=== PATIENT | female | born 1980 | race Caucasian/White ===

== ENCOUNTER 2016-04-21 19:36 | Emergency (ER) | payer BC ==
[2016-04-21] MEDS ORDERED: NORMAL SALINE 10 ML SYRINGE FLUSH IVP PRN (19:52)
[2016-04-21] MEDS ORDERED: ASPIRIN 81 MG (BABY) CHEWABLE TABLET PO ONE (19:52)
[2016-04-21] MEDS ORDERED: Sodium Chloride 0.9% 1,000 ML PRIMARY IV ONE (19:52)
[2016-04-21] MEDS ORDERED: NITROGLYCERIN 0.4 MG SL TAB (BOTTLE OF 3) SL PRN (19:52)
--- NOTE | 2016-04-21 19:55 | EKG ---
[address] [address] Measurements Intervals [place] Rate: 76 P: 41 [place]: 144 QRS: -23 QRSD: 93 T: 29 QT: 380 QTc: 410 Interpretive Statements SINUS RHYTHM BORDERLINE LEFT AXIS DEVIATION [QRS AXIS < -20] INCOMPLETE RIGHT BUNDLE BRANCH BLOCK [90+ ms QRS DURATION, TERMINAL R IN V1/V2, 40+ ms S IN I/aVL/V4/V5/V6] NONSPECIFIC T-WAVE ABNORMALITY No previous ECG available for comparison Electronically Signed On 04-22-16 08:30:46 MST by Valentin Lux MD [email or web address]
[2016-04-21 20:02] LABS: BASOPHILS # (AUTO) 0.01 10*3/UL; BASOPHILS % (AUTO) 0.2 % (0-1); EOSINOPHILS % (AUTO) 2.8 % (0-8); HEMATOCRIT 39.2 % (37.0-47.0); HEMOGLOBIN 13.1 g/dL (12.0-16.0); IMM GRAN % (AUTO) 0.3 % (0-5); IMM GRAN# (AUTO) 0.02 10*3/UL; LYMPHOCYTES # (AUTO) 1.79 10*3/uL; LYMPHOCYTES % (AUTO) 28.2 % (10-50); MEAN CORPUSCULAR HEMOGLOBIN 28.9 PG (27-31); MEAN CORPUSCULAR HGB CONC 33.4 g/dL (33-37); MEAN PLATELET VOLUME 11.1 FL (7.4-12.2); MONOCYTES # (AUTO) 0.42 10*3/UL (0.3-0.8); MONOCYTES % (AUTO) 6.6 % (5-15); NEUTROPHILS # (AUTO) 3.93 10*3/UL; NEUTROPHILS % (AUTO) 61.9 % (50-80); RDW COEFFICIENT OF VARIATION 13.8 % (11.5-14.5); RED BLOOD COUNT 4.53 10^6/uL (4.20-5.40); WHITE BLOOD COUNT 6.35 10^3/uL (4.8-10.8)
[2016-04-21 20:03] LABS: PLATELET MORPHOLOGY COMMENT NORMAL MORPHOLOGY (NORM)
[2016-04-21 20:13] LABS: ASPARTATE AMINO TRANSFERASE 18 IU/L (8-39); BILIRUBIN,TOTAL 0.5 mg/dL (0.3-1.2); BLOOD UREA NITROGEN 17 mg/dL (7-22); CALCIUM 8.9 mg/dL (8.7-10.7); CHLORIDE 105 meq/L (98-112); EST GLOMERULAR FILTRATION > 60 (>60 ml/min/1.73m(2)); GLUCOSE 77 mg/dL (78-110); POTASSIUM 3.9 meq/L (3.8-5.2); SODIUM 142 meq/L (135-145); TOTAL PROTEIN 6.8 g/dL (6.1-8.0)
[2016-04-21 20:25] LABS: TROPONIN I < 0.012 ng/mL (< 0.040)
--- NOTE | 2016-04-21 20:35 | DI ---
XR CXR 1VW,04/21/2016 7:52 PM: Clinical History: Chest pain Previous Exam: December 18, 2013 Findings: A single frontal radiograph of the chest is obtained, and demonstrate clear lungs. The cardiomediasti num and bony thorax are unremarkable. Overlying EKG leads are seen. Impression: Normal chest.
[2016-04-21] MEDS ORDERED: KETOROLAC 30 MG/1 ML VIAL IVP ONE (20:51)
--- NOTE | 2016-04-21 22:37 | PDOC ---
General Adult HPI - General Chief Complaint: Chest Pain Stated Complaint: jaw pain; pain right small finger Date Seen by Provider: 04/21/16 Time Seen by Provider: 19:40 Source: POSITIVE: Patient Exam Limitations: POSITIVE: No limitations Nurse's Notes Reviewed & Considered: Yes - History of Present Illness Initial Comment: The patient is a 35 year old female who presents to the emergency room ambulatory. She states that it since around 6 AM this morning she has had bilateral jaw pain, exacerbated by opening her mouth wide. She has been taking some discomfort for this. She also complains of pain to the right small finger which she describes as "throbbing". Patient states that she experienced some discomfort to her neck, right side, when she was standing on her head. She has since had a chiropractic manipulation which seemed to relieve her neck discomfort. She has a history of carpal tunnel syndrome. She also has a history of a prolactinoma for which she takes Parlodel, 10 mg daily. History of hypothyroidism. She is a realtor. Have you received a tetanus shot in the past 10 years?: Yes Body Location Affected: REPORTS: Upper Extremity (R) (Right small finger), Other (Bilateral jaw) Timing: REPORTS: Abrupt Duration: <24 hours (Approximately 13-15 hours) Severity: Moderate Quality: REPORTS: Aching, "Pain" Context: REPORTS: None Modifying Factors: improves with: Nothing Similar Symptoms Previously: No Recent Care Received: REPORTS: Recently Seen, Treated by MD (Seen by chiropractor recently as above) Any Prior Injuries Related to Current Complaint?: No - Patient Home Medications Home Medications: Home Medications Levothyroxine Sodium 100 mcg ORAL QD tab 10/27/10 Amphet Asp/Amphet/D-Amphet [Adderall Xr 25 Mg Capsule] 25 mg ORAL QD capsule Bromocriptine Mesylate [Parlodel] 15 mg ORAL HS capsule 03/22/11 - Patient Allergies Allergies/Adverse Reactions: Allergies Allergy/AdvReac Type Severity Reaction Status Date / Time No Known Drug Allergies Allergy NOT Verified 04/21/16 20:09 APPLICABLE Past Medical History - heen HEENT History: Denies History Cardiovascular History: Denies History Respiratory History: Denies History Gastrointestinal History: Denies History Genitourinary History: Denies History Endocrine History: Hypothyroidism, Other (please comment) Additional Endocrine History: HASHIMOTOS Musculoskeletal History: Denies History Prosthesis or Implant: (BREAST) Neurological History: Denies History Blood Disorders: Denies History Psychiatric History: Denies History Cancer History: Other (please comment) History of MDRO: No Alcohol Use: Occasionally Substance Use Type: None Previous Surgical History: Yes Type / Date of Surgery: HYSTERECTOMY, R CARPAL TUNNEL, BREAST AUG. Anesthesia Reactions: No Malignant Hyperthermia: No Significant Family History: No pertinent family hx Past Medical History Reviewed: Reviewed - No Changes ROS - Limitations ROS Limitations: No Limitations Constitution: REPORTS: Denies Symptoms Cardiovascular: REPORTS: Denies Cardiac Symptoms Respiratory: REPORTS: Denies Resp Symptoms Neurological: REPORTS: Denies Neuro Symptoms Gastrointestinal: REPORTS: Denies GI Symptoms Endocrine: REPORTS: Denies Symptoms Musculoskeletal: REPORTS: Other (Discomfort right small finger) Genitourinary: REPORTS: Denies Symptoms Eyes: REPORTS: Denies Symptoms ENT: REPORTS: Other (Pain, mainly over the temporal mandibular joint areas bilaterally on direct palpation and with opening her mouth fully) Skin: REPORTS: Denies Skin Symptoms Lympathic: REPORTS: Denies Lympathic Symptoms Immunologic: POSITIVE: Denies Symptoms Psychiatric: POSITIVE: Denies Psych Symptoms General Adult Exam - General Appearance General Appearance: POSITIVE: Alert, Cooperative, No Acute Distress, No Evidence of Trauma - HEENT HEENT: POSITIVE: Head Inspection Nml, Eyes Inspection Nml, Ears Inspection Nml, Nose Inspection Nml, Oral/Dental Inspect. Nml, Pharynx Inspect. Nml, PERRL, EOMI , Other (Discomfort right mandible especially over her TMJ area with palpation and opening her mouth widely) - Pupils Pupil Size: 4 mm: Bilateral (PERRLA) - Neck Neck: POSITIVE: Normal Inspection, Thyroid Normal - Respiratory Respiratory: POSITIVE: No Respiratory Distress, Breath Sounds Normal, Chest Non- Tender - Cardiovascular Cardiovascular: POSITIVE: Regular Rate & Rhythm, No Murmur, No Gallop, PMI Normal Peripheral Pulses: Radial (R): 2+, Radial (L): 2+ - Abdomen Abdomen: Soft: (All Quadrants), Normal Bowel Sounds: (All Quadrants), Denies Tenderness: (All Quadrants), No Splenomegaly: (All Quadrants), No Hepatomegaly: (All Quadrants), No Guarding: (All Quadrants), No Rebound: (All Quadrants), No Palpable Pulse: (All Quadrants), No Palpabale Mass: (All Quadrants), No Distention: (All Quadrants), No Rigidity: (All Quadrants) - Back Back: POSITIVE: Normal Inspection - Skin Skin: POSITIVE: Normal Color, Warm, Dry, No Rash - Extremities Extremity: Non-Tender: (All Extremities), (LLE), (RLE), (LUE), Normal ROM: (All Extremities), Normal Inspection: (All Extremities), Normal Tendon Exam: (All Extremities) Additional Extremities Details: Neurovascular status of right small finger intact. Some discomfort of right small finger is produced by firm palpation and compression over the radial nerve over the radial tunnel. Ulnar pulses +3 and symmetrical. - Neurological / Psychological Neurological: POSITIVE: Oriented X3, veneer layer Normal As Tested, Motor Normal, Sensation Normal, 5, 6 Reflexes: Bicep (R): 2+, Bicep (L): 2+ Images - Head Head: 1 - Discomfort 2 - Discomfort - Hands Hand: 1 - Complains of discomfort to the right fifth finger General Adult Progress - Results Reviewed by me Xrays/CTs/US Reviewed by me: Yes Discussed with Radiologist: No Radiology Findings: AP chest x-ray normal Lab Results Reviewed: Yes Lab Results:: Laboratory Results 04/21/16 Range/Units 19:59 WBC 6.35 (4.8-10.8) 10^3/uL RBC 4.53 (4.20-5.40) 10^6/uL Hgb 13.1 (12.0-16.0) g/dL Hct 39.2 (37.0-47.0) % MCV 86.5 (81-99) FL MCH 28.9 (27-31) PG MCHC 33.4 (33-37) g/dL RDW Std Deviation 42.8 (39-50) fL RDW Coeff of Rebecca 13.8 (11.5-14.5) % Plt Count 203 (140-350) 10*3/uL MPV 11.1 (7.4-12.2) FL Immature Gran % (Auto) 0.3 (0-5) % Neut % (Auto) 61.9 (50-80) % Lymph % (Auto) 28.2 (10-50) % [place] % (Auto) 6.6 (5-15) % Eos % (Auto) 2.8 (0-8) % Baso % (Auto) 0.2 (0-1) % Immature Gran # (Auto) 0.02 10*3/UL Neut # (Auto) 3.93 10*3/UL Lymph # (Auto) 1.79 10*3/uL [place] # (Auto) 0.42 (0.3-0.8) 10*3/UL Eos # (Auto) 0.18 10*3/UL Baso # (Auto) 0.01 10*3/UL WBC Morphology Comment Normal morphology (NORM) Plt Morphology Comment Normal morphology (NORM) RBC Morph Comment Normal morphology (NORM) D-Dimer 0.29 (0.00-0.59) mg/L Sodium 142 (135-145) meq/L Potassium 3.9 (3.8-5.2) meq/L Chloride 105 (98-112) meq/L Carbon Dioxide 22 L (23-33) meq/L Anion Gap 15 (5-20) BUN 17 (7-22) mg/dL Creatinine 1.0 (0.50-1.20) mg/dL Estimated GFR > 60 (>60 ml/min/1.73m(2)) BUN/Creatinine Ratio 17.00 (6-20) Glucose 77 L (78-110) mg/dL Calculated Osmolality 294.0 H (267-292) mOsm/kg Calcium 8.9 (8.7-10.7) mg/dL Total Bilirubin 0.5 (0.3-1.2) mg/dL AST 18 (8-39) IU/L ALT 32 (9-52) IU/L Alkaline Phosphatase 59 (38-126) IU/L CK-MB (CK-2) 1.50 (0.00-5.00) NG/DL Troponin I < 0.012 (< 0.040) ng/mL Total Protein 6.8 (6.1-8.0) g/dL Albumin 4.3 (3.5-4.8) g/dL Globulin 2.5 (2.50-4.10) g/dL Albumin/Globulin Ratio 1.70 (1.3-2.0) mg/g EKG Interpreted/Reviewed By Me:: Yes (normal) EKG Interpretation:: POSITIVE: Normal Sinus Rhythm, Normal Rate, Normal Intervals, Normal [place], Normal QRS, Normal ST/T - Patient's Progress Pain Medication Addressed: POSITIVE: Yes (Nitroglycerin sublingually given without effect) School/Work Release Addressed: POSITIVE: Not Applicable Re-Examine Time: 20:55 Status: POSITIVE: Unchanged, Re-Examined Antibiotics Given: No Quality Measure Initiative: CP/AMI: POSITIVE: EKG, ASA - Consult Counseled: POSITIVE: Patient, RE: Lab Results, RE: Radiology Results, RE: DX, RE : Need for F/U Patient Care Time - Estimated PCT Patient Care Time (In Minutes): 40 Vital Signs - Recent Vital Signs Vital Signs: Blood pressure 115/85, heart rate 77/m, respiratory rate 16/m, temperature 98.8 F, oxygen saturation on room air 95%. - VS Reviewed Vital Signs Reviewed: Yes Discharge Clinical Impression: TMJ (temporomandibular joint syndrome), Ulnar tunnel syndrome of right wrist Discharge Disposition: Discharged to Home Condition: Stable Patient Instructions Given at Discharge: Temporomandibular Disorder (ED) Additional Instructions: I do not believe that the pain in your right small finger is coming from your heart. I believe you may have what is known as an ulnar tunnel syndrome, which is similar to carpal tunnel syndrome, but involves the nerve which provided sensation to the small finger. I believe the jaw pain you're having also, is not coming from your heart. 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 Both these conditions are usually self-limiting. Advil or Aleve will also help both conditions, as can warm moist compresses. Follow-up with your primary care provider. Return here anytime if condition worsens in any way. A wrist splint , such as you have warned for your carpal tunnel syndrome, may also help the discomfort in your right small finger. Follow Up With: NONE,NONE [Primary Care Provider] - (Instructions as above. Follow-up with your primary care provider. Return here anytime if condition worsens.)
[2016-04-21 23:21] VITALS: RESP 16; TEMP 98
== END 2016-04-21 21:12 | disposition home or self-care (01) ==
LOC: ER 19:36
DX: M26.603 Bilateral temporomandibular joint disorder, unspecified (principal); G56.01 Carpal tunnel syndrome, right upper limb; M79.644 Pain in right finger(s); R07.9 Chest pain, unspecified
CPT/HCPCS: 71010; 80053; 82553; 84484; 85025; 85379; 93005; 93010; 96374; 99283 ×2; J1885; J7030

== ENCOUNTER → 2016-07-07 | Outpatient (CLI) | payer BC ==
[2016-07-07 08:54] LABS: HEMATOCRIT 41.1 % (37.0-47.0); HEMOGLOBIN 13.5 g/dL (12.0-16.0); MEAN CORPUSCULAR HGB CONC 32.8 g/dL (33-37); MEAN CORPUSCULAR VOLUME 88.4 FL (81-99); MEAN PLATELET VOLUME 10.4 FL (7.4-12.2); RED BLOOD COUNT 4.65 10^6/uL (4.20-5.40)
[2016-07-07 10:18] LABS: BLOOD UREA NITROGEN 17 mg/dL (7-22); BUN/CREATININE RATIO 21.25 (6-20); CALCIUM 9.3 mg/dL (8.7-10.7); EST GLOMERULAR FILTRATION > 60 (>60 ml/min/1.73m(2)); SERUM ALBUMIN 4.3 g/dL (3.5-4.8)
[2016-07-07 11:01] LABS: CHOL/HDL RATIO 1.94 RATIO (0-4.0); LDL CHOLESTEROL,CALCULATED 76.6 mg/dL; MAGNESIUM 1.8 mg/dL (1.6-2.4); SERUM ALBUMIN 4.3 g/dL (3.5-4.8)
== END ==
LOC: LAB 08:17
PROVIDERS: ATTEND Internal Medicine
DX: T78.2XXA Anaphylactic shock, unspecified, initial encounter (principal); E22.1 Hyperprolactinemia; N91.2 Amenorrhea, unspecified; Z79.899 Other long term (current) drug therapy; Z00.00 Encounter for general adult medical examination without abnormal findings
CPT/HCPCS: 36415; 80053; 80061; 80076; 83001; 83002; 83520; 83735; 84100; 84146; 84443; 85027; 86003

== ENCOUNTER → 2016-09-12 | Outpatient (CLI) | payer BC ==
--- NOTE | 2016-09-12 14:32 | DI ---
MRI CERVICAL SPINE SCAN, 09/12/2016 1:04 PM: Clinical History: Neck pain and right arm pain. Previous Exam: None. Sequences: Sagittal T1and T2 weighted. Axial T2 PLUS and FE 3D DUAL. Coronal T1 scans through the upp er cervical spine. The vertebral bodies are of normal height and size. There is severe disc space narrowing at C4-5 with sclerosis of the endplates at this level. The remaining disc spaces are of normal height. All cervic al disc spaces show desiccation change. The cervical cord and cerebellar tonsils are normal. There is "ballooning" of the sella turcica and it is filled primarily with CSF, and these findings are consis tent with the "empty sella" syndrome. The C2-3 and C3-4 disc spaces are normal. C4-5 has a central bu lging but not herniated disc without canal or right neural foraminal stenosis. There is left neural f oraminal stenosis. C5-6 and C6-7 both have minimally central bulging but not herniated discs without canal or neural foraminal stenosis. The disc spaces from C7-T1 through T3-4 are normal. Readin. C4-5 has a bulging but not herniated disc with left neural foraminal stenosis. There is no canal or right neural foraminal stenosis. The patient has by history right sided symptoms. 2. There are bulging but not herniated discs without canal or neural foraminal stenosis at C5-6 and C6-7. 3. The disc spaces at C2-3, C3-4, and C7-T1 through T3-4 are normal. 4. Incidental finding of an enlarged or "ballooned" sella consistent with the empty sella syndrome.
== END ==
LOC: MRI 13:00
PROVIDERS: ATTEND Chiropractor
DX: M54.2 Cervicalgia (principal); M79.601 Pain in right arm; M47.22 Other spondylosis with radiculopathy, cervical region; M47.812 Spondylosis without myelopathy or radiculopathy, cervical region
CPT/HCPCS: 72141

== ENCOUNTER 2017-05-15 18:12 | Inpatient (IN) ==
[2017-05-15] MEDS ORDERED: NORMAL SALINE 10 ML SYRINGE FLUSH IVP PRN ×3 (18:30→23:47)
[2017-05-15] MEDS ORDERED: Sodium Chloride 0.9% 1,000 ML PRIMARY IV ONE ×2 (18:30→19:45)
[2017-05-15] MEDS ORDERED: KETOROLAC 15 MG/1 ML VIAL IVP ONE (18:30)
[2017-05-15] MEDS ORDERED: LORazepam 2 MG/1 ML VIAL IVP ONE (18:31)
[2017-05-15 19:02] LABS: BASOPHILS # (AUTO) 0.01 10*3/UL; BASOPHILS % (AUTO) 0.1 % (0-1); EOSINOPHILS # (AUTO) 0.07 10*3/UL; EOSINOPHILS % (AUTO) 0.9 % (0-8); Hematocrit [HCT] 35.4 % (37.0-47.0); Hemoglobin [HGB] 11.9 g/dL (12.0-16.0); LYMPHOCYTES # (AUTO) 0.88 10*3/uL; MEAN CORPUSCULAR HEMOGLOBIN 28.5 PG (27-31); MEAN CORPUSCULAR HGB CONC 33.6 g/dL (33-37); MEAN CORPUSCULAR VOLUME 84.9 FL (81-99); MEAN PLATELET VOLUME 11.2 FL (7.4-12.2); MONOCYTES # (AUTO) 0.43 10*3/UL (0.3-0.8); MONOCYTES % (AUTO) 5.6 % (5-15); NEUTROPHILS # (AUTO) 6.29 10*3/UL; NEUTROPHILS % (AUTO) 81.9 % (50-80); RED BLOOD COUNT 4.17 10^6/uL (4.20-5.40)
--- NOTE | 2017-05-15 19:04 | EKG ---
[address] [place] [address] Measurements Intervals [place] Rate: 96 P: 17 AR: 145 QRS: -33 QRSD: 106 T: 50 QT: 338 QTc: 392 Interpretive Statements SINUS RHYTHM MARKED LEFT AXIS DEVIATION NONSPECIFIC T-WAVE ABNORMALITY Compared to ECG 04/21/2016 19:43:15 Incomplete right bundle-branch block no longer present T-wave abnormality still present Electronically Signed On 05-16-17 08:17:21 [facility] by Mahesh Sylvester [email or web address]
[2017-05-15 19:05] LABS: PLATELET MORPHOLOGY COMMENT NORMAL MORPHOLOGY (NORM); RBC MORPHOLOGY COMMENT NORMAL MORPHOLOGY (NORM); WBC MORPHOLOGY COMMENT NORMAL MORPHOLOGY (NORM)
[2017-05-15 19:16] LABS: BLOOD UREA NITROGEN 16 mg/dL (7-22); BUN/CREATININE RATIO 22.85 (6-20); SERUM ALBUMIN 4.3 g/dL (3.5-4.8)
[2017-05-15] MEDS ORDERED: Magnesium Sulfate 1gm (Premix) 1 GM/100 ML BAG IV ONE (19:25)
[2017-05-15] MEDS ORDERED: diphenhydrAMINE 50 MG/1 ML VIAL IVP ONE (19:55)
[2017-05-15] MEDS ORDERED: Prochlorperazine Edisylate Inj 10mg/2ml vial IVP ONE (19:57)
[2017-05-15 20:21] LABS: VENOUS PH 7.58 (7.32-7.42)
--- NOTE | 2017-05-15 21:31 | DI ---
EXAM: CT Angiography Chest Without and With Intravenous Contrast CLINICAL HISTORY: ITS.REASON sob, elevated d-d-jose Physician Notes: Tech Comments: TECHNIQUE: Axial computed tomographic angiography images of the chest without and with intravenous contrast using pulmonary embolism protocol. MIP reconstructed images were created and reviewed. COMPARISON: Chest x-ray dated 04/21/2016. FINDINGS: Pulmonary arteries: Unremarkable. No evidence of pulmonary embolism. Aorta: No acute findings. No thoracic aortic aneurysm. Lungs: Large focus of consolidation in the right lower lobe. Pleural space: Unremarkable. No significant effusion. No pneumothorax. Heart: Unremarkable. No cardiomegaly. No significant pericardial effusion. No evidence of RV dysfunction. Bones/joints: No acute fracture. No dislocation. Soft tissues: Unremarkable. Lymph nodes: Unremarkable. No enlarged lymph nodes. IMPRESSION: No evidence of pulmonary embolism. Large focus of consolidation in the right lower lobe. This is most compatible with pneumonia in the appropriate setting.
[2017-05-15] MEDS ORDERED: cefTRIAXone Inj 2 GM in Sodium Chloride 0.9% 100 ML IV ONE (21:36)
--- NOTE | 2017-05-15 21:51 | PDOC ---
General Adult HPI - General Chief Complaint: General Medical Stated Complaint: Fever of 105 and hurts all over Date Seen by Provider: 05/15/17 Time Seen by Provider: 18:15 Source: POSITIVE: Patient Exam Limitations: POSITIVE: No limitations Nurse's Notes Reviewed & Considered: Yes - History of Present Illness Initial Comment: The patient is a 36-year-old female who is sent to the emergency department from the walk-in clinic with complaints of high fever and cough. She developed upper respiratory symptoms for 5 days ago while traveling in [place]. Over the weekend she developed worsening cough and some low-grade fever. She was evaluated here in the emergency department yesterday and had blood work that was all unremarkable and a chest x-ray that was normal. She was thought to have a viral upper respiratory infection. Her temperature increased significantly this afternoon and measured 105 at home. She has continued cough as well. She subsequently went to the walk-in clinic where her temperature was 103. She received a dose of Tylenol and Motrin and had an influenza screen that was negative. After administration of medications her temperature remained 105 and so she was sent here to the emergency department. On arrival here her temperature remained 105. She states she has continued cough which is mostly dry. She does have some increase shortness of breath. She denies any chest pain. She does have some associated congestion in her sinuses and in her left ear. She also has some associated headache which she describes as generalized. She denies any neck or back pain. She does report numbness and tingling in her hands as well as some pain in her forearms bilaterally Have you received a tetanus shot in the past 10 years?: Yes - Patient Home Medications Home Medications: Home Medications Levothyroxine Sodium 100 mcg ORAL QD tab 10/27/10 Amphet Asp/Amphet/D-Amphet [Adderall Xr 25 Mg Capsule] 25 mg ORAL QD cap Bromocriptine Mesylate [Parlodel] 15 mg ORAL HS cap 03/22/11 Acetaminophen [Tylenol] 325 mg PO PRN 05/15/17 Ibuprofen [Advil] 200 mg PO PRN 05/15/17 - Patient Allergies Allergies/Adverse Reactions: Allergies 3 Allergy/AdvReac Type Severity Reaction Status Date / Time No Known Drug Allergies Allergy NOT Verified 05/15/17 18:27 APPLICABLE Past Medical History - heen HEENT History: Denies History Cardiovascular History: Denies History Respiratory History: Denies History Gastrointestinal History: Denies History Genitourinary History: Denies History Endocrine History: Hypothyroidism, Other (please comment) Additional Endocrine History: HASHIMOTOS Musculoskeletal History: Denies History Prosthesis or Implant: (BREAST) Additional Musculoskeletal History: Hx of right carpal tunnel release. Neurological History: Denies History Additional Neurological History: Hx of prolactinoma for 14 years--well controlled with medication. Blood Disorders: Denies History Psychiatric History: Denies History History of Sexually Transmitted Diseases: No Female Reproductive History: Denies History Obstetrical History: Denies History Cancer History: Denies History In Past Year Been Physically Harmed or Verbally Threatened: No History of MDRO: No History of Other Communicable Diseases: No Tobacco Use: Never Smoker Alcohol Use: Occasionally In the Past 12 Months, Have Used or Abuse Any Substance: None Previous Surgical History: Yes Type / Date of Surgery: HYSTERECTOMY, R CARPAL TUNNEL, BREAST AUG. Anesthesia Reactions: No Malignant Hyperthermia: No Significant Family History: No pertinent family hx Past Medical History Reviewed: Reviewed - No Changes ROS - Limitations ROS Limitations: No Limitations Constitution: REPORTS: Chills, Fever Cardiovascular: DENIES: Chest Pain, Heart Palpitations, Edema Respiratory: REPORTS: Cough Non Productive, Cough Productive, Shortness Of Breath Neurological: REPORTS: Headache. DENIES: Confusion, Numbness, Weakness Gastrointestinal: REPORTS: Denies GI Symptoms Musculoskeletal: REPORTS: Muscle Aches Genitourinary: REPORTS: Denies Symptoms Eyes: REPORTS: Denies Symptoms. DENIES: Vision Changes ENT: REPORTS: Earache (Left), Congestion, Nasal Drainage, Sore Throat Skin: DENIES: Rash General Adult Exam - General Appearance General Appearance: POSITIVE: Alert, Cooperative, No Acute Distress - HEENT HEENT: POSITIVE: Head Inspection Nml, Eyes Inspection Nml, Nose Inspection Nml, TM Erythema (Left TM is erythematous), Pharyngeal Erythema. NEGATIVE: Pharyngeal Exudate - Neck Neck: POSITIVE: Normal Inspection. NEGATIVE: Lymphadenopathy, Stiff Neck - Respiratory Respiratory: POSITIVE: No Respiratory Distress, Rhonchi (Bases bilaterally), Other (She is breathing rapidly on arrival.) - Cardiovascular Cardiovascular: POSITIVE: Regular Rate & Rhythm, No Murmur Peripheral Pulses: Dorsalis-pedis (R): 2+, Dorsalis-pedis (L): 2+ - Abdomen Abdomen: Soft: (All Quadrants), Denies Tenderness: (All Quadrants), No Distention: (All Quadrants) - Skin Skin: POSITIVE: Normal Color, No Rash - Extremities Extremity: Normal ROM: (All Extremities), Normal Inspection: (All Extremities) - Neurological / Psychological Neurological: POSITIVE: Oriented X3, 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 Lab Results Reviewed by Me: Yes CBC and BMP: 05/15/17 18:50 05/15/17 18:44 EKG Interpretation:: POSITIVE: Normal Sinus Rhythm, Normal Rate, Normal Intervals, Normal QRS, Normal ST/T - Patient's Progress MDM / ED Course: On arrival the patient's temperature remained 105. Blood cultures and lactate were drawn with initial IV start. The patient was hyperventilating on arrival and was having some numbness and tingling in her hands. Venous blood gas revealed a pH of 7.52. She received a bolus of normal saline as well as Toradol 15 mg IV and Ativan 1 mg IV. Her breathing rate improved significantly and oxygen saturations remained good. The numbness and tingling in her hands resolved. She did however continue to have headache which she described as generalized. She received Benadryl 25 mg and Compazine 5 mg IV. She did have marked improvement in her headache however this did make her fairly groggy. Her blood work reveals a normal white blood cell count with a CRP that is elevated at 3. Her mycoplasma is negative, the remainder of her blood work is essentially unremarkable except for a mildly elevated d-dimer. Because of her recent travel and elevated d-dimer she underwent CTA. This was negative for PE however did show a large infiltrate in the right lower lobe. Her lactate was normal on arrival. She received Rocephin 2 g and Zithromax 500 mg IV. Her magnesium was also a little bit low at 1.5 and she received 1 g of magnesium IV. Discussed the patient with Dr. Ayala is agreed to admit the patient for further treatment. After decision to admit the patient the patient's blood pressure was found to be 85 systolic and she was given a second fluid bolus. - Consult Counseled: POSITIVE: Patient, Family, RE: Lab Results, RE: Radiology Results, RE : DX Patient Care Time - Estimated PCT Patient Care Time (In Minutes): 40 Vital Signs - Recent Vital Signs Vital Signs: Vital Signs (Last 8 hours) Temp Pulse Pulse Resp BP BP Pulse Ox 05/15/17 22:57 99.3 F 93 18 85/55 97 05/15/17 18:12 105.2 F H 107 H 20 107/72 99 - VS Reviewed Vital Signs Reviewed: Yes Discharge Clinical Impression: Hypomagnesemia Pneumonia Qualifiers: Pneumonia type: due to unspecified organism Laterality: right Lung location: lower lobe of lung Qualified Code(s): J18.1 - Lobar pneumonia, unspecified organism Discharge Disposition: Admit to Inpatient Condition: Fair Date Decision to Admit to Inpatient: 05/16/17 Time Decision to Admit to Inpatient: 22:15
[2017-05-15] MEDS ORDERED: cefTRIAXone Inj 2 GM in Sodium Chloride 0.9% 100 ML IV SCH (23:00)
[2017-05-15] MEDS ORDERED: ACETAMINOPHEN 500 MG TABLET PO PRN ×2 (23:02→23:47)
[2017-05-15] MEDS ORDERED: ONDANSETRON 4 MG/2 ML VIAL IVP PRN (23:02)
[2017-05-15] MEDS ORDERED: LIDOCAINE W/ SODIUM BICARB 0.5 ML SYR SUBD PRN ×2 (23:02→23:47)
[2017-05-15] MEDS ORDERED: ALBUTEROL SULFATE 2.5 MG/3 ML NEB PRN (23:02)
[2017-05-15] MEDS ORDERED: BROMOCRIPTINE MESYLATE 5 MG ORAL SCH (23:02)
[2017-05-15] MEDS ORDERED: Sodium Chloride 0.9% 3,000 ML PRIMARY IV ONE ×2 (23:18→23:47)
[2017-05-15] MEDS ORDERED: GUAIFENESIN/CODEINE SYRUP 100 MG/ 10 MG/ 5 ML UD CUP PO PRN ×2 (23:19→23:47)
[2017-05-15] MEDS ORDERED: GUAIFENESIN 600 MG TABLET PO ONE ×2 (23:19→23:47)
[2017-05-15] MEDS ORDERED: Magnesium Sulfate 2gm (Premix) 2 GM/50 ML BAG IV ONE ×2 (23:21→23:47)
[2017-05-15] MEDS ORDERED: IBUPROFEN 400 MG TABLET PO PRN ×2 (23:30→23:47)
--- NOTE | 2017-05-15 23:30 | PDOC ---
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 Her temperature is actually found to be 105F here in the emergency room. She probably had pneumonia around 2 years ago but it was not quite as severe. She had a CT scan done in the emergency room that showed a right lower lobe pneumonia. She tried some NyQuil and Advil at home that did not seem to help her get better. This is actually her third visit for these symptoms as she came to the emergency room yesterday and was sent home, and went to the urgent care today before she presented here. I am told that the influenza studies were negative. Her initial blood pressure systolic-morales was in the 100s, but by the time I saw her and after I was done examining her the nurse reported to me that her systolic pressure dropped to 75. The patient did have the flu shot this year. She got Rocephin and Zithromax in the emergency room. She is not hypoxic at this point. She reports headaches and nausea and vomiting with her symptoms of fevers, chill, cough. She does not smoke. The symptoms that she started a few days back after the patient had recently gotten back from a trip in [place] where she stayed in a bed and breakfast. She had congestion initially before the cough started. Past Medical History Medical History: 1. Hypothyroidism. 2. Prolactinoma. 3. I believe ADD, adult. Surgical History: 1. Hysterectomy. 2. Carpal tunnel surgery Pertinent Family History: No significant history of diabetes or coronary artery disease. Past Social History: . Does not have biological children. Does not smoke or drink. Tobacco Use: Never Smoker In the Past 12 Months, Have Used or Abuse Any of the Following Substance: None Alcohol Use: None Medication / Allergies Home Medications: Home Medications 3 Medication Instructions Recorded Confirmed Type Levothyroxine Sodium 100 mcg ORAL QD tab 10/27/10 05/15/17 History Amphet Asp/Amphet/D-Amphet 25 mg ORAL QD cap 03/22/11 05/15/17 History [Adderall Xr 25 Mg Capsule] Bromocriptine Mesylate [Parlodel] 15 mg ORAL HS cap 03/22/11 05/15/17 History Acetaminophen [Tylenol] 325 mg PO PRN 05/15/17 05/15/17 History Ibuprofen [Advil] 200 mg PO PRN 05/15/17 05/15/17 History Allergies/Adverse Reactions: Allergies 3 Allergy/AdvReac Type Severity Reaction Status Date / Time No Known Drug Allergies Allergy NOT Verified 05/15/17 18:27 APPLICABLE Review of Systems - Review of Systems All Systems: Reviewed & No Additional Complaints Except as Stated (I did a 12 point review systems was negative other than that discussed in the history present illness and then noted below.) - Constitutional Constitutional: REPORTS: Fever / Chills, Fatigue, Diffuse Myalgias (In relation to her pneumonia.), Malaise, Recent Illness Exam - Vitals Vital Signs: Vital Signs Temperature 99.3 F Temperature Source Temporal Artery Scan Pulse Rate 93 Respiratory Rate 18 Blood Pressure 85/55 Pulse Ox 97 Weight 134 lb 6.4 oz - General General Appearance: No Acute Distress, Cooperative - Head Head Exam: Normal Inspection, Normocephalic, Atraumatic - Eye Eye Exam: POSITIVE: No Scleral Icterus - ENT ENT Exam: POSITIVE: Mucous Membranes Dry - Neck Neck Exam: Normal Inspection, No Tenderness, No Lymphadenopathy, No Thyromegaly - Respiratory Respiratory Exam: POSITIVE: Breathing Non Labored, Normal to Percussion and Palpation, Crackles (Slight and right base.) - Cardiovascular Cardiovascular Exam: POSITIVE: RRR, No Murmur, No Clicks, No Gallops, No Rubs, No JVD - GI/Abdominal GI/Abdominal Exam: POSITIVE: Normal Bowel Sounds, Non Tender, Non Distended, Soft - Rectal Rectal Exam: POSITIVE: Deferred - External Exam: POSITIVE: Deferred Exam: POSITIVE: Deferred - Extremities Extremities Exam: POSITIVE: No Clubbing Present, No Edema Present, No Cyanosis Present - Back Back Exam: POSITIVE: Normal Inspection, No CVA Tenderness - Neurological Neurological Exam: POSITIVE: Alert, Oriented x 3, Normal Gait, No Facial Droop, Speech Intact / Clear, Moves All Extremities Equally - Psychiatric Psychiatric Exam: POSITIVE: Normal Affect, Normal Mood - Integumentary Integumentary Exam: POSITIVE: Normal Color, Warm, Dry, Intact Additional Integumentary Exam Details: This is for visualized portions of skin. Skin is not clammy. - Central Line Examination Central Line Present on Admission: No Results - Labs CBC and BMP: 05/15/17 18:50 05/15/17 18:44 Additional Lab Results: Laboratory Results 05/15/17 05/15/17 05/15/17 Range/Units 18:44 18:44 18:44 WBC (4.8-10.8) 10^3/uL RBC (4.20-5.40) 10^6/uL Hgb (12.0-16.0) g/dL Hct (37.0-47.0) % MCV (81-99) FL MCH (27-31) PG MCHC (33-37) g/dL RDW Std Deviation (39-50) fL RDW Coeff of Rebecca (11.5-14.5) % Plt Count (140-350) 10*3/uL MPV (7.4-12.2) FL Immature Gran % (Auto) (0-5) % Neut % (Auto) (50-80) % Lymph % (Auto) (10-50) % Delta % (Auto) (5-15) % Eos % (Auto) (0-8) % Baso % (Auto) (0-1) % Immature Gran # (Auto) 10*3/UL Neut # (Auto) 10*3/UL Lymph # (Auto) 10*3/uL Delta # (Auto) (0.3-0.8) 10*3/UL Eos # (Auto) 10*3/UL Baso # (Auto) 10*3/UL WBC Morphology Comment (NORM) Plt Morphology Comment (NORM) RBC Morph Comment (NORM) D-Dimer 0.63 H (0.00-0.59) mg/L VBG pH (7.32-7.42) VBG pCO2 (45-55) mmHg VBG HCO3 (22-26) mmol/L VBG Base Excess (-2-2) MMOL/L Sodium 135 D (135-145) meq/L Potassium 3.7 L (3.8-5.2) meq/L Chloride 101 (98-112) meq/L Carbon Dioxide 21 L (23-33) meq/L Anion Gap 13 (5-20) BUN 16 (7-22) mg/dL Creatinine 0.7 (0.50-1.20) mg/dL Estimated GFR > 60 (>60 ml/min/1.73m(2)) BUN/Creatinine Ratio 22.85 H (6-20) Glucose 92 (78-110) mg/dL Calculated Osmolality 280.0 (267-292) mOsm/kg Lactic Acid 0.9 (0.70-2.10) MMOL/L Calcium 8.8 (8.7-10.7) mg/dL Magnesium 1.5 L (1.6-2.4) mg/dL Total Bilirubin 0.3 (0.3-1.2) mg/dL AST 19 (8-39) IU/L ALT 31 (9-52) IU/L Alkaline Phosphatase 52 (38-126) IU/L Total Creatine Kinase (30-136) IU/L Troponin I (< 0.040) ng/mL C-Reactive Protein 3.0 H (0.0-0.9) mg/dL Total Protein 6.6 (6.1-8.0) g/dL Albumin 4.3 (3.5-4.8) g/dL Globulin 2.4 L (2.50-4.10) g/dL Albumin/Globulin Ratio 1.70 (1.3-2.0) mg/g 05/15/17 05/15/17 05/15/17 Range/Units 18:44 18:44 18:50 WBC 7.69 (4.8-10.8) 10^3/uL RBC 4.17 L (4.20-5.40) 10^6/uL Hgb 11.9 L (12.0-16.0) g/dL Hct 35.4 L (37.0-47.0) % MCV 84.9 (81-99) FL MCH 28.5 (27-31) PG MCHC 33.6 (33-37) g/dL RDW Std Deviation 38.4 L (39-50) fL RDW Coeff of Rebecca 12.8 (11.5-14.5) % Plt Count 135 L (140-350) 10*3/uL MPV 11.2 (7.4-12.2) FL Immature Gran % (Auto) 0.1 (0-5) % Neut % (Auto) 81.9 H (50-80) % Lymph % (Auto) 11.4 (10-50) % Delta % (Auto) 5.6 (5-15) % Eos % (Auto) 0.9 (0-8) % Baso % (Auto) 0.1 (0-1) % Immature Gran # (Auto) 0.01 10*3/UL Neut # (Auto) 6.29 10*3/UL Lymph # (Auto) 0.88 10*3/uL Delta # (Auto) 0.43 (0.3-0.8) 10*3/UL Eos # (Auto) 0.07 10*3/UL Baso # (Auto) 0.01 10*3/UL WBC Morphology Comment Normal morphology (NORM) Plt Morphology Comment Normal morphology (NORM) RBC Morph Comment Normal morphology (NORM) D-Dimer (0.00-0.59) mg/L VBG pH (7.32-7.42) VBG pCO2 (45-55) mmHg VBG HCO3 (22-26) mmol/L VBG Base Excess (-2-2) MMOL/L Sodium (135-145) meq/L Potassium (3.8-5.2) meq/L Chloride (98-112) meq/L Carbon Dioxide (23-33) meq/L Anion Gap (5-20) BUN (7-22) mg/dL Creatinine (0.50-1.20) mg/dL Estimated GFR (>60 ml/min/1.73m(2)) BUN/Creatinine Ratio (6-20) Glucose (78-110) mg/dL Calculated Osmolality (267-292) mOsm/kg Lactic Acid (0.70-2.10) MMOL/L Calcium (8.7-10.7) mg/dL Magnesium (1.6-2.4) mg/dL Total Bilirubin (0.3-1.2) mg/dL AST (8-39) IU/L ALT (9-52) IU/L Alkaline Phosphatase (38-126) IU/L Total Creatine Kinase 37 (30-136) IU/L Troponin I < 0.012 (< 0.040) ng/mL C-Reactive Protein (0.0-0.9) mg/dL Total Protein (6.1-8.0) g/dL Albumin (3.5-4.8) g/dL Globulin (2.50-4.10) g/dL Albumin/Globulin Ratio (1.3-2.0) mg/g 05/15/17 Range/Units 18:50 WBC (4.8-10.8) 10^3/uL RBC (4.20-5.40) 10^6/uL Hgb (12.0-16.0) g/dL Hct (37.0-47.0) % MCV (81-99) FL MCH (27-31) PG MCHC (33-37) g/dL RDW Std Deviation (39-50) fL RDW Coeff of Rebecca (11.5-14.5) % Plt Count (140-350) 10*3/uL MPV (7.4-12.2) FL Immature Gran % (Auto) (0-5) % Neut % (Auto) (50-80) % Lymph % (Auto) (10-50) % Delta % (Auto) (5-15) % Eos % (Auto) (0-8) % Baso % (Auto) (0-1) % Immature Gran # (Auto) 10*3/UL Neut # (Auto) 10*3/UL Lymph # (Auto) 10*3/uL Delta # (Auto) (0.3-0.8) 10*3/UL Eos # (Auto) 10*3/UL Baso # (Auto) 10*3/UL WBC Morphology Comment (NORM) Plt Morphology Comment (NORM) RBC Morph Comment (NORM) D-Dimer (0.00-0.59) mg/L VBG pH 7.58 H (7.32-7.42) VBG pCO2 21 L (45-55) mmHg VBG HCO3 19 L (22-26) mmol/L VBG Base Excess -3 L (-2-2) MMOL/L Sodium (135-145) meq/L Potassium (3.8-5.2) meq/L Chloride (98-112) meq/L Carbon Dioxide (23-33) meq/L Anion Gap (5-20) BUN (7-22) mg/dL Creatinine (0.50-1.20) mg/dL Estimated GFR (>60 ml/min/1.73m(2)) BUN/Creatinine Ratio (6-20) Glucose (78-110) mg/dL Calculated Osmolality (267-292) mOsm/kg Lactic Acid (0.70-2.10) MMOL/L Calcium (8.7-10.7) mg/dL Magnesium (1.6-2.4) mg/dL Total Bilirubin (0.3-1.2) mg/dL AST (8-39) IU/L ALT (9-52) IU/L Alkaline Phosphatase (38-126) IU/L Total Creatine Kinase (30-136) IU/L Troponin I (< 0.040) ng/mL C-Reactive Protein (0.0-0.9) mg/dL Total Protein (6.1-8.0) g/dL Albumin (3.5-4.8) g/dL Globulin (2.50-4.10) g/dL Albumin/Globulin Ratio (1.3-2.0) mg/g 05/15/17 18:00 Influenza A (Rapid) Negative Influenza B (Rapid) Negative 05/15/17 19:24 Mycoplasma pneumoniae DNA Detection - Final Throat Is negative - EKG Data -: EKG Interpreted by Me Rate: Normal EKG Shows Normal: Sinus Rhythm - Imaging Status: Image Reviewed by Me (Chest x-ray was done. I think I see a slight right lower lobe infiltrate, although the radiologist read it as negative. The lateral view showed some increased opacity I thought in the lung windows. The CT scan of the chest was reviewed, on my view there is a right lower lobe pneumonia. The radiologist felt this was the case as well.) Assessment and Plan - Patient Problems (1) Sepsis Current Visit: Yes Status: Acute Code(s): A41.9 - Sepsis, unspecified organism Qualifiers: Sepsis type: sepsis due to unspecified organism Qualified Code(s): A41.9 - Sepsis, unspecified organism (2) Pneumonia Current Visit: Yes Status: Acute Code(s): J18.9 - Pneumonia, unspecified organism Qualifiers: Pneumonia type: due to unspecified organism Laterality: right Lung location: lower lobe of lung Qualified Code(s): J18.1 - Lobar pneumonia, unspecified organism (3) Hypotension Current Visit: Yes Status: Acute Code(s): I95.9 - Hypotension, unspecified Qualifiers: Hypotension type: other hypotension type Qualified Code(s): I95.89 - Other hypotension (4) Hypothyroidism Current Visit: Yes Status: Acute Code(s): E03.9 - Hypothyroidism, unspecified Qualifiers: Hypothyroidism type: due to Cirilo's thyroiditis Qualified Code(s): E03.8 - Other specified hypothyroidism; E06.3 - Autoimmune thyroiditis - Assessment / Plan Additional Assessment/Plan Details: Admit patient. Antibiotics will be given IV rocephin and zithromax, although I will have a low threshold to switch to Levaquin given the recent stay in the bed and breakfast, high fever, thrombocytopenia, electrolyte abnormalities, should the patient not be improved quickly. In addition to Streptococcus pneumoniae urinary antigen, I will send one off for Legionella as well I will write for some breathing therapies including nebulized therapies if necessary. Oxygen as necessary to keep saturations greater than 91%. Respiratory therapy to evaluate. Vitamin C by mouth. We'll check a urinary antigen for strep pneumoniae. vaccine status reviewed had flu vaccine. PSI score is 62. Class II pneumonia CURB-65 is 1 smoking status negative Repeat labs in a.m. CODE STATUS discussed, full code Blood cultures are pending. Telemetry monitoring for now. course of antibiotics will be 7 days, and will switch to oral antibiotics within 48 hours if clinical picuure stabilizes and clinical criteria are met. Given sepsis, 3 L of normal saline now, and continue rate. Electrolyte replacement including potassium and magnesium. Meds for cough including codeine and guaifenesin Plan above discussed with patient and patient agreed
[2017-05-15] MEDS ORDERED: Levofloxacin 750 MG / 30 ML VIAL IV SCH (23:45)
[2017-05-15] MEDS: ALBUTEROL SULFATE 2.5 MG/3 ML NEB PRN (23:50)
[2017-05-16] MEDS ORDERED: Vancomycin-PHA to Dose IV PRN (00:43)
[2017-05-16] MEDS: Cefepime Inj 2 GM in Sodium Chloride 0.9% 100 ML IV SCH ×2 (00:57→09:56)
[2017-05-16] MEDS ORDERED: Sodium Chloride 0.9% 250 ML IV ONE (01:33)
[2017-05-16 02:07] LABS: ABG BASE EXCESS -9 MMOL/L (-2-2); ABG OXYGEN SATURATION 87 % (90-100); ABG PCO2 31 MMHG (34-38); ABG PH 7.33 (7.35-7.45); ABG PO2 55 MMHG (65-75); ALLEN TEST Y; COLLECTION SITE L Rad X 1
[2017-05-16 05:10] LABS: Hematocrit [HCT] 36.5 % (37.0-47.0); Hemoglobin [HGB] 12.2 g/dL (12.0-16.0); MEAN CORPUSCULAR HGB CONC 33.4 g/dL (33-37); MEAN CORPUSCULAR VOLUME 86.7 FL (81-99); RED BLOOD COUNT 4.21 10^6/uL (4.20-5.40)
[2017-05-16 05:23] LABS: BLOOD UREA NITROGEN 10 mg/dL (7-22); BUN/CREATININE RATIO 16.66 (6-20)
[2017-05-16] MEDS ORDERED: LEVOTHYROXINE 100 MCG TABLET PO SCH (05:30)
[2017-05-16] MEDS: LEVOTHYROXINE 100 MCG TABLET PO SCH (05:32)
[2017-05-16 05:48] LABS: PLATELET MORPHOLOGY COMMENT NORMAL MORPHOLOGY (NORM); RBC MORPHOLOGY COMMENT NORMAL MORPHOLOGY (NORM); WBC MORPHOLOGY COMMENT NORMAL MORPHOLOGY (NORM)
[2017-05-16 05:49] LABS: BAND NEUTROPHILS % 34 % (0-10); BASOPHILS % (MANUAL) 0 % (0-1); EOSINOPHILS % (MANUAL) 1 % (0-8); MONOCYTES % (MANUAL) 2 % (0-12); MYELOCYTES % 1 %; NEUTROPHILS % (MANUAL) 42 % (50-80); PROMYELOCYTES % 2 %
[2017-05-16] MEDS: IPRATROPIUM/ALBUTEROL SULFATE 3 ML NEB NEB SCH ×4 (06:53→19:38)
[2017-05-16] MEDS ORDERED: IPRATROPIUM/ALBUTEROL SULFATE 3 ML NEB NEB SCH (07:00)
[2017-05-16] MEDS ORDERED: Lactated Ringers 500 ML PRIMARY IV ONE (07:50)
[2017-05-16] MEDS ORDERED: Lactated Ringers 1,000 ML PRIMARY IV SCH (08:00)
[2017-05-16 08:23] LABS: ABG BASE EXCESS -4 MMOL/L (-2-2); ABG OXYGEN SATURATION 100 % (90-100); ABG PCO2 32 MMHG (34-38); ABG PH 7.42 (7.35-7.45); ABG PO2 208 MMHG (65-75); ALLEN TEST Y; COLLECTION SITE R RADIAL
[2017-05-16] MEDS: ASCORBIC ACID 500 MG TABLET PO SCH (08:43)
[2017-05-16] MEDS: GUAIFENESIN 600 MG TABLET PO SCH ×2 (08:43→21:33)
[2017-05-16] MEDS: HEPARIN 5000 UNIT/1 ML SUBCUT SCH ×2 (08:43→17:24)
[2017-05-16] MEDS: Famotidine Inj 20 MG in Normal Saline Flush 10 ML IVP SCH (08:43)
[2017-05-16] MEDS ORDERED: AMPHET ORAL SCH ×2 (09:00)
[2017-05-16] MEDS ORDERED: AMPHET ASP ORAL SCH ×2 (09:00)
[2017-05-16] MEDS ORDERED: GUAIFENESIN 600 MG TABLET PO SCH (09:00)
[2017-05-16] MEDS ORDERED: ASCORBIC ACID 500 MG TABLET PO SCH (09:00)
[2017-05-16] MEDS ORDERED: D AMPHET ORAL SCH ×2 (09:00)
[2017-05-16] MEDS: traMADol 50 MG TABLET PO PRN (10:15)
[2017-05-16] MEDS: cefTRIAXone Inj 2 GM in Sodium Chloride 0.9% 100 ML IV SCH (10:15)
[2017-05-16] MEDS ORDERED: FUROSEMIDE 10 MG/1 ML - 2 ML VIAL IVP ONE (12:25)
[2017-05-16] MEDS: Lactated Ringers 1,000 ML PRIMARY IV SCH (12:35)
[2017-05-16] MEDS ORDERED: IBUPROFEN 800 MG TABLET PO PRN (13:35)
[2017-05-16] MEDS: ONDANSETRON 4 MG/2 ML VIAL IVP PRN (16:53)
[2017-05-16 17:22] LABS: BLOOD UREA NITROGEN 10 mg/dL (7-22); BUN/CREATININE RATIO 16.66 (6-20)
[2017-05-16] MEDS ORDERED: Magnesium Sulfate 2gm (Premix) 2 GM/50 ML BAG IV ONE (17:57)
[2017-05-16] MEDS: Prochlorperazine Edisylate Inj 10mg/2ml vial IVP PRN (18:22)
--- NOTE | 2017-05-16 18:27 | DI ---
XR CXR 1VW,05/16/2017 9:00 AM: Clinical History: Pneumonia and sepsis. Previous Exam: CT angiogram performed May 15, 2017 Findings: A single frontal radiograph of the chest is obtained, and demonstrate some worsening airspace disease . This is worse within the right lung base where there is silhouetting of the right hemidiaphragm. Th ere is also some airspace disease within the left lung base. Overlying EKG leads are seen. Impression: Worsening airspace disease probably within the right lung base consistent with worsening pneumonia.
--- NOTE | 2017-05-16 19:29 | PDOC(PROG) ---
Date and Time of Service: 05/16/2017, 1920 Interval History: seen, evaluated through out the day. chest pains earlier, but better short of breath, but better through the day oxygen able to come down through the day has nausea and vomiting Objective : Data - Labs CBC and BMP: 05/16/17 04:12 05/16/17 17:00 Objective : Exam - General General Appearance: Cooperative, Mild Distress Additional General Exam Details: Vital Signs - Last Taken Temperature 98.4 F 05/16/17 16:00 Pulse Rate 81 05/16/17 19:00 Respiratory Rate 24 05/16/17 19:00 Blood Pressure 94/64 05/16/17 19:00 Pulse Ox 95 05/16/17 19:00 - Head Head Exam: Normal Inspection, Normocephalic, Atraumatic - Eye Eye Exam: No Scleral Icterus - ENT ENT Exam: Mucous Membranes Moist - Respiratory Respiratory Exam: Breathing Non Labored, Decreased Breath Sounds (especially on right side.), Coarse Breath Sounds - Cardiovascular Cardiovascular Exam: RRR, No Murmur, No Clicks, No Gallops, No Rubs, No JVD - GI/Abdominal GI/Abdominal Exam: Normal Bowel Sounds, Non Tender, Non Distended, Soft - Extremities Extremities Exam: No Clubbing Present, No Edema Present, No Cyanosis Present - Neurological Neurological Exam: Alert, Oriented x 3, No Facial Droop, Speech Intact / Clear, Moves All Extremities Equally Assessment and Plan - Patient Problems (1) Sepsis Current Visit: Yes Status: Acute Code(s): A41.9 - Sepsis, unspecified organism Qualifiers: Sepsis type: sepsis due to unspecified organism Qualified Code(s): A41.9 - Sepsis, unspecified organism (2) Pneumonia Current Visit: Yes Status: Acute Code(s): J18.9 - Pneumonia, unspecified organism Qualifiers: Pneumonia type: due to unspecified organism Laterality: right Lung location: lower lobe of lung Qualified Code(s): J18.1 - Lobar pneumonia, unspecified organism (3) Hypotension Current Visit: Yes Status: Acute Code(s): I95.9 - Hypotension, unspecified Qualifiers: Hypotension type: other hypotension type Qualified Code(s): I95.89 - Other hypotension (4) Hypothyroidism Current Visit: Yes Status: Acute Code(s): E03.9 - Hypothyroidism, unspecified Qualifiers: Hypothyroidism type: due to Cirilo's thyroiditis Qualified Code(s): E03.8 - Other specified hypothyroidism; E06.3 - Autoimmune thyroiditis - Assessment / Plan Additional Assessment/Plan Details: continue Rocephin, day #2. lasix for one dose, I think some of chest X-ray today was related to fluid overload with early goal directed sepsis. replace magnesium and potassium DVT prophylaxis continue vapotherm oxygen delivery. labs in AM BC are negative thus far pain meds for pleuritic pain overall, some improvement, but still very ill. needs close RN monitoring, especially with respiratory requirements total critical care time, 40 min, no overlap.
[2017-05-16] MEDS ORDERED: cefTRIAXone Inj 2 GM in Sodium Chloride 0.9% 100 ML IV SCH ×5 (21:00)
[2017-05-16] MEDS ORDERED: BROMOCRIPTINE MESYLATE ORAL SCH (21:00)
[2017-05-16] MEDS ORDERED: BROMOCRIPTINE MESYLATE 5 MG ORAL SCH (21:00)
[2017-05-17] MEDS: ALBUTEROL SULFATE 2.5 MG/3 ML NEB PRN ×2 (00:48→19:27)
[2017-05-17] MEDS ORDERED: SODIUM CHLORIDE 44 ML SPRAY ENOS PRN ×2 (01:01→11:54)
[2017-05-17] MEDS: HEPARIN 5000 UNIT/1 ML SUBCUT SCH ×3 (01:11→19:15)
[2017-05-17] MEDS: traMADol 50 MG TABLET PO PRN ×2 (01:15→09:17)
[2017-05-17] MEDS: Prochlorperazine Edisylate Inj 10mg/2ml vial IVP PRN ×3 (04:04→16:02)
[2017-05-17] MEDS: LEVOTHYROXINE 100 MCG TABLET PO SCH (05:17)
[2017-05-17] MEDS ORDERED: AMPHET ASP ORAL SCH (05:30)
[2017-05-17] MEDS ORDERED: AMPHET ORAL SCH (05:30)
[2017-05-17] MEDS ORDERED: D AMPHET ORAL SCH (05:30)
[2017-05-17 05:35] LABS: Hematocrit [HCT] 33.3 % (37.0-47.0); Hemoglobin [HGB] 10.7 g/dL (12.0-16.0); MEAN CORPUSCULAR HEMOGLOBIN 28.1 PG (27-31); MEAN CORPUSCULAR HGB CONC 32.1 g/dL (33-37); MEAN CORPUSCULAR VOLUME 87.4 FL (81-99); MEAN PLATELET VOLUME 11.5 FL (7.4-12.2); RED BLOOD COUNT 3.81 10^6/uL (4.20-5.40)
[2017-05-17 05:59] LABS: BLOOD UREA NITROGEN 9 mg/dL (7-22)
[2017-05-17 06:43] LABS: BAND NEUTROPHILS % 20 % (0-10); BASOPHILS % (MANUAL) 0 % (0-1); EOSINOPHILS % (MANUAL) 0 % (0-8); METAMYELOCYTES % 3 %; MONOCYTES % (MANUAL) 4 % (0-12); NEUTROPHILS % (MANUAL) 57 % (50-80)
[2017-05-17 06:44] LABS: PLATELET MORPHOLOGY COMMENT NORMAL MORPHOLOGY (NORM); RBC MORPHOLOGY COMMENT NORMAL MORPHOLOGY (NORM); WBC MORPHOLOGY COMMENT SEE COMMENTS (NORM)
[2017-05-17] MEDS: IPRATROPIUM/ALBUTEROL SULFATE 3 ML NEB NEB SCH ×4 (07:12→23:35)
[2017-05-17] MEDS: ONDANSETRON 4 MG/2 ML VIAL IVP PRN (09:23)
[2017-05-17] MEDS: ASCORBIC ACID 500 MG TABLET PO SCH (09:24)
[2017-05-17] MEDS: GUAIFENESIN 600 MG TABLET PO SCH ×2 (09:25→21:13)
[2017-05-17] MEDS: Famotidine Inj 20 MG in Normal Saline Flush 10 ML IVP SCH (09:26)
[2017-05-17] MEDS: cefTRIAXone Inj 2 GM in Sodium Chloride 0.9% 100 ML IV SCH (09:39)
[2017-05-17] MEDS ORDERED: NORMAL SALINE 10 ML SYRINGE FLUSH IVP PRN (11:54)
[2017-05-17] MEDS ORDERED: Prochlorperazine Edisylate Inj 10mg/2ml vial IVP PRN (11:54)
[2017-05-17] MEDS ORDERED: oxyCODONE IR Tab 5 MG TAB PO PRN (11:54)
[2017-05-17] MEDS ORDERED: GUAIFENESIN/CODEINE SYRUP 100 MG/ 10 MG/ 5 ML UD CUP PO PRN (11:54)
[2017-05-17] MEDS ORDERED: LIDOCAINE W/ SODIUM BICARB 0.5 ML SYR SUBD PRN (11:54)
--- NOTE | 2017-05-17 11:59 | DI ---
CT Head WO Contrast,05/17/2017 10:33 AM: Clinical History: Headache. Previous Exam: None at this facility. Findings: Multiple helically acquired CT images are obtained through the brain without contrast, and demonstrat e normal, symmetric ventricles and other CSF containing spaces. There is no mass, hemorrhage or midli ne shift. There is layering fluid within the maxillary sinuses. Intraorbital structures are unremarka ble. Impression: Normal CT head.
[2017-05-17] MEDS: IBUPROFEN 800 MG TABLET PO PRN ×2 (13:00→19:15)
--- NOTE | 2017-05-17 13:36 | DI ---
CT Chest WO Contrast,05/17/2017 11:54 AM: Clinical History: Right pneumonia question effusion. Previous Exam: May 15, 2017 Findings: Multiple helically acquired CT images are obtained through the chest without contrast, and demonstrat e bibasilar infiltrates worse on the right than the left. There is a medium-sized right pleural effusion which is more concentrated superiorly than inferiorly. There is a small left pleural effusion. The upper abdomen is unremarkable. Skeletal structures and surrounding soft tissues are unremarkable. Impression: The bibasilar pneumonia with bilateral parapneumonic effusions.
--- NOTE | 2017-05-17 13:58 | PDOC(PROG) ---
Date and Time of Service: 05/17/2017, 1350 Interval History: Has cough that is a little bit more productive. Complains of headache. Positive nausea and vomiting. Does much better with Compazine, but Zofran does not seem to help. Does not normally get headaches. After reviewing CT scan with radiologist of the chest, it is clear that she has a parapneumonic effusion on the right and on the left although the one on the right is a little larger. We will arrange for a thoracentesis. I updated the patient's primary care doctor as well. Objective : Data - Labs CBC and BMP: 05/17/17 05:24 05/17/17 05:24 Additional Lab Results: 05/17/17 05:24 Magnesium 1.9 05/15/17 18:50 Blood Culture - Preliminary Blood NO GROWTH AFTER 24 HOURS 05/15/17 18:44 Blood Culture - Preliminary Blood NO GROWTH AFTER 24 HOURS - Imaging CT Scan Status: Image Reviewed by Me (CT of chest, shows right-sided pneumonia that's fairly consolidated and what appears to be the right lower lobe, and there are bilaterally notable for effusions, right side greater than left. Head CT scan is negative on my view. Read as normal by the radiologist.) Objective : Exam - General General Appearance: No Acute Distress, Cooperative Additional General Exam Details: Vital Signs - Last Taken Temperature 98.0 F 05/17/17 10:00 Pulse Rate 76 05/17/17 11:41 Respiratory Rate 16 05/17/17 11:41 Blood Pressure 115/88 05/17/17 10:00 Pulse Ox 94 05/17/17 11:41 - Eye Eye Exam: No Scleral Icterus - ENT ENT Exam: Mucous Membranes Moist - Respiratory Respiratory Exam: Breathing Non Labored, Coarse Breath Sounds Additional Respiratory Exam Details: Absent breath sounds in right lower base. - Cardiovascular Cardiovascular Exam: RRR, No Murmur, No Clicks, No Gallops, No Rubs, No JVD - GI/Abdominal GI/Abdominal Exam: Normal Bowel Sounds, Non Tender, Non Distended, Soft - Extremities Extremities Exam: No Clubbing Present, No Edema Present, No Cyanosis Present - Neurological Neurological Exam: Alert, Oriented x 3, No Facial Droop, Speech Intact / Clear, Moves All Extremities Equally Assessment and Plan - Patient Problems (1) Pneumonia Current Visit: Yes Status: Acute Code(s): J18.9 - Pneumonia, unspecified organism Qualifiers: Pneumonia type: due to unspecified organism Laterality: right Lung location: lower lobe of lung Qualified Code(s): J18.1 - Lobar pneumonia, unspecified organism (2) Parapneumonic effusion Current Visit: Yes Status: Acute Code(s): J18.9 - Pneumonia, unspecified organism; J91.8 - Pleural effusion in other conditions classified elsewhere (3) Hypothyroidism Current Visit: Yes Status: Acute Code(s): E03.9 - Hypothyroidism, unspecified Qualifiers: Hypothyroidism type: due to Cirilo's thyroiditis Qualified Code(s): E03.8 - Other specified hypothyroidism; E06.3 - Autoimmune thyroiditis (4) Sepsis Current Visit: Yes Status: Acute Code(s): A41.9 - Sepsis, unspecified organism Qualifiers: Sepsis type: Pneumococcus Qualified Code(s): A40.3 - Sepsis due to Streptococcus pneumoniae (5) Hypotension Current Visit: Yes Status: Resolved Code(s): I95.9 - Hypotension, unspecified Qualifiers: Hypotension type: other hypotension type Qualified Code(s): I95.89 - Other hypotension - Assessment / Plan Additional Assessment/Plan Details: Sepsis has improved/nearly resolved. I think we can stop fluids at this point. She still has nausea and vomiting is not related candidate to go on to by mouth antibiotics at this point. On Rocephin and Zithromax, today is day #3. With a parapneumonic effusion, I think the patient would benefit from a thoracentesis. I described the procedure to her including the risks and benefits, and we will arrange to have that done in radiology. If there is any signs of infection or possible empyema, she may need to be transferred for further care of that, but if it is not infectious and I think we can continue to watch the patient here. Reassuring that the CT scan of the head is negative, probably the headaches are in relation to the pneumonia and she feels better after Motrin here today. Transfer out of ICU. Continue DVT prophylaxis.
[2017-05-17] MEDS ORDERED: HEPARIN 5000 UNIT/1 ML SUBCUT SCH (15:15)
[2017-05-17] MEDS: BROMOCRIPTINE MESYLATE ORAL SCH (21:13)
[2017-05-18] MEDS: HEPARIN 5000 UNIT/1 ML SUBCUT SCH ×3 (00:54→17:00)
[2017-05-18] MEDS: Lactated Ringers 1,000 ML PRIMARY IV SCH (00:58)
[2017-05-18] MEDS: ALBUTEROL SULFATE 2.5 MG/3 ML NEB PRN ×4 (01:05→14:39)
[2017-05-18] MEDS ORDERED: GUAIFENESIN/DM 5 ML UD CUP PO PRN (02:03)
[2017-05-18] MEDS: IBUPROFEN 800 MG TABLET PO PRN ×2 (02:32→17:46)
[2017-05-18] MEDS: ACETAMINOPHEN 500 MG TABLET PO PRN ×2 (02:32→08:31)
[2017-05-18] MEDS: AMPHET ORAL SCH (06:34)
[2017-05-18] MEDS: LEVOTHYROXINE 100 MCG TABLET PO SCH (06:34)
[2017-05-18] MEDS: D AMPHET ORAL SCH (06:34)
[2017-05-18] MEDS: AMPHET ASP ORAL SCH (06:34)
[2017-05-18 07:05] LABS: BASOPHILS # (AUTO) 0 10*3/UL; BASOPHILS % (AUTO) 0 % (0-1); EOSINOPHILS # (AUTO) 0.07 10*3/UL; EOSINOPHILS % (AUTO) 1.1 % (0-8); Hematocrit [HCT] 31.6 % (37.0-47.0); Hemoglobin [HGB] 10.3 g/dL (12.0-16.0); LYMPHOCYTES # (AUTO) 1.25 10*3/uL; MEAN CORPUSCULAR HEMOGLOBIN 28.6 PG (27-31); MEAN CORPUSCULAR HGB CONC 32.6 g/dL (33-37); MEAN CORPUSCULAR VOLUME 87.8 FL (81-99); MEAN PLATELET VOLUME 10.4 FL (7.4-12.2); MONOCYTES # (AUTO) 0.44 10*3/UL (0.3-0.8); MONOCYTES % (AUTO) 6.8 % (5-15); NEUTROPHILS # (AUTO) 4.67 10*3/UL; NEUTROPHILS % (AUTO) 72.3 % (50-80); PLATELET MORPHOLOGY COMMENT NORMAL MORPHOLOGY (NORM); RBC MORPHOLOGY COMMENT NORMAL MORPHOLOGY (NORM); WBC MORPHOLOGY COMMENT NORMAL MORPHOLOGY (NORM)
[2017-05-18 07:31] LABS: BLOOD UREA NITROGEN 7 mg/dL (7-22); BUN/CREATININE RATIO 11.66 (6-20)
[2017-05-18] MEDS ORDERED: Famotidine Inj 20 MG in Normal Saline Flush 10 ML IVP SCH (09:00)
[2017-05-18] MEDS: GUAIFENESIN 600 MG TABLET PO SCH ×2 (09:10→20:09)
[2017-05-18] MEDS: ASCORBIC ACID 500 MG TABLET PO SCH (09:10)
[2017-05-18] MEDS: cefTRIAXone Inj 2 GM in Sodium Chloride 0.9% 100 ML IV SCH (09:25)
--- NOTE | 2017-05-18 13:19 | PDOC(PROG) ---
Interval History: The patient is feeling much better today still a little weak cough is much improved also not requiring oxygen Objective : Data - Labs CBC and BMP: 05/18/17 07:02 05/18/17 07:02 Objective : Exam - General General Appearance: No Acute Distress - Head Head Exam: Normal Inspection, Normocephalic, Atraumatic - Respiratory Respiratory Exam: Clear to Auscultation - Bilaterally, Breathing Non Labored, Normal To Percussion, Normal to Percussion and Palpation - Cardiovascular Cardiovascular Exam: RRR, No Murmur, No Clicks, No Gallops, No Rubs, PMI Non- Displaced - GI/Abdominal GI/Abdominal Exam: Normal Bowel Sounds, Non Tender, Non Distended, Soft, No Masses, No Hepatomegaly, No Splenomegaly, No Organomegaly - Extremities Extremities Exam: Normal Inspection, No Clubbing Present, No Edema Present Assessment and Plan - Patient Problems (1) Pneumonia Current Visit: Yes Status: Acute Comment: Patient is improving sepsis is resolved I believe the patient could benefit the from a 1 or 2 more days of IV antibiotics considering how sick and the severity of her pneumonia was we will keep monitoring the vital signs and labs if she does not require oxygen and vitals were within normal limits and the labs look okay by tomorrow we will reevaluate for possible discharge. And she did not have a thoracentesis since the parapneumonic effusions were too small to drain according to the radiology discussed this with nursing and patient Code(s): J18.9 - Pneumonia, unspecified organism Qualifiers: Pneumonia type: due to unspecified organism Laterality: right Lung location: lower lobe of lung Qualified Code(s): J18.1 - Lobar pneumonia, unspecified organism (2) Sepsis Current Visit: Yes Status: Acute Code(s): A41.9 - Sepsis, unspecified organism Qualifiers: Sepsis type: Pneumococcus Qualified Code(s): A40.3 - Sepsis due to Streptococcus pneumoniae (3) Hypotension Current Visit: Yes Status: Resolved Code(s): I95.9 - Hypotension, unspecified Qualifiers: Hypotension type: other hypotension type Qualified Code(s): I95.89 - Other hypotension (4) Hypothyroidism Current Visit: Yes Status: Acute Code(s): E03.9 - Hypothyroidism, unspecified Qualifiers: Hypothyroidism type: due to Cirilo's thyroiditis Qualified Code(s): E03.8 - Other specified hypothyroidism; E06.3 - Autoimmune thyroiditis (5) Parapneumonic effusion Current Visit: Yes Status: Acute Code(s): J18.9 - Pneumonia, unspecified organism; J91.8 - Pleural effusion in other conditions classified elsewhere
[2017-05-18] MEDS: BROMOCRIPTINE MESYLATE ORAL SCH (20:10)
[2017-05-19] MEDS ORDERED: Zolpidem Tab 5 MG TAB PO ONE (00:25)
[2017-05-19] MEDS: HEPARIN 5000 UNIT/1 ML SUBCUT SCH ×2 (00:34→09:30)
[2017-05-19] MEDS: AMPHET ORAL SCH (04:36)
[2017-05-19] MEDS: AMPHET ASP ORAL SCH (04:36)
[2017-05-19] MEDS: D AMPHET ORAL SCH (04:36)
[2017-05-19] MEDS: LEVOTHYROXINE 100 MCG TABLET PO SCH (04:36)
[2017-05-19 05:11] LABS: BASOPHILS # (AUTO) 0.01 10*3/UL; BASOPHILS % (AUTO) 0.3 % (0-1); EOSINOPHILS # (AUTO) 0.09 10*3/UL; EOSINOPHILS % (AUTO) 2.5 % (0-8); Hematocrit [HCT] 30.9 % (37.0-47.0); LYMPHOCYTES # (AUTO) 1.21 10*3/uL; MEAN CORPUSCULAR HEMOGLOBIN 28.2 PG (27-31); MEAN CORPUSCULAR HGB CONC 32.4 g/dL (33-37); MEAN PLATELET VOLUME 11.1 FL (7.4-12.2); MONOCYTES # (AUTO) 0.35 10*3/UL (0.3-0.8); MONOCYTES % (AUTO) 9.8 % (5-15); NEUTROPHILS # (AUTO) 1.87 10*3/UL; NEUTROPHILS % (AUTO) 52.2 % (50-80); RED BLOOD COUNT 3.55 10^6/uL (4.20-5.40)
[2017-05-19 05:12] LABS: PLATELET MORPHOLOGY COMMENT NORMAL MORPHOLOGY (NORM); RBC MORPHOLOGY COMMENT NORMAL MORPHOLOGY (NORM); WBC MORPHOLOGY COMMENT NORMAL MORPHOLOGY (NORM)
[2017-05-19 05:22] LABS: BLOOD UREA NITROGEN 6 mg/dL (7-22); SERUM ALBUMIN 3.2 g/dL (3.5-4.8)
[2017-05-19] MEDS: ALBUTEROL SULFATE 2.5 MG/3 ML NEB PRN ×2 (06:17→10:24)
[2017-05-19] MEDS ORDERED: Magnesium Sulfate 2gm (Premix) 2 GM/50 ML BAG IV ONE (07:35)
[2017-05-19 07:58] VITALS: BP 116/82; TEMP 98.6
[2017-05-19] MEDS: IBUPROFEN 800 MG TABLET PO PRN (09:04)
[2017-05-19] MEDS: GUAIFENESIN 600 MG TABLET PO SCH (09:30)
[2017-05-19] MEDS: ASCORBIC ACID 500 MG TABLET PO SCH (09:30)
[2017-05-19] MEDS: cefTRIAXone Inj 2 GM in Sodium Chloride 0.9% 100 ML IV SCH (10:03)
--- NOTE | 2017-05-19 10:22 | DCSUMMARY ---
Hospitalization Summary Hospital Course: Final Discharge Diagnosis: Current Visit Problems Problem Status Onset Code Pneumonia Acute J18.9 Sepsis Acute A41.9 Hypotension Resolved I95.9 Hypothyroidism Acute E03.9 Hypomagnesemia Acute E83.42 Parapneumonic effusion Acute J18.9, J91.8 Diagnostic Data, Laboratory Data, and Procedures of Signifigance: CBC and BMP 05/19/17 04:35 05/19/17 04:35 History and Physical pertinent to Admission: Past Medical History Medical History: 1. Hypothyroidism. 2. Prolactinoma. 3. I believe ADD, adult. Surgical History: 1. Hysterectomy. 2. Carpal tunnel surgery Pertinent Family History: No significant history of diabetes or coronary artery disease. Past Social History: . Does not have biological children. Does not smoke or drink. 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 Today she is well requiring no oxygen even on ambulation she stays above 92% she is eating hemodynamically stable not tachycardic and not tachypneic. She did some have elevated liver enzymes which is typical sometimes with strep pneumo. I did order a hepatitis panel I also consult with Dr. Tran infectious disease patient can be discharged home on amoxicillin 1 g 3 times a day for 5 days. She did have small bilateral pleural effusions which were too small to drain. She will follow-up with her primary care physician Dr. Treadwell she states she will make her own appointment On the date of discharge, the patient was examined: Gen.: No acute distress, alert, nontoxic Heart: Regular rate and rhythm, no murmurs, clicks, gallops, or rubs Lungs: Clear to auscultation bilaterally, breathing is nonlabored Abdomen/GI: Normal tones on auscultation, soft, nontender, nondistended Musculoskeletal/extremities: No clubbing, cyanosis, or edema Vitals reviewed and are listed below Vital Signs (24 hrs) Temp Pulse Pulse Pulse Pulse Resp BP 05/19/17 07:57 98.6 F 68 16 05/19/17 06:18 44 L 16 05/19/17 06:17 44 L 16 05/19/17 04:49 98.2 F 67 20 116/77 05/19/17 00:03 98.0 F 86 22 110/78 05/18/17 20:47 99.3 F 85 14 105/69 05/18/17 19:00 86 85 86 05/18/17 16:44 98.7 F 66 16 116/87 05/18/17 14:40 18 05/18/17 13:00 97.7 F 63 16 120/88 05/18/17 11:00 80 05/18/17 10:49 65 20 05/18/17 10:48 68 20 BP Pulse Ox 05/19/17 07:57 116/82 97 05/19/17 06:18 05/19/17 06:17 93 05/19/17 04:49 91 05/19/17 00:03 91 05/18/17 20:47 92 05/18/17 19:00 05/18/17 16:44 96 05/18/17 14:40 05/18/17 13:00 98 05/18/17 11:00 96 05/18/17 10:49 05/18/17 10:48 93 Assessment and Plan: 1. As per discharge assessments above 2. Disposition: Home 3. Condition on discharge, stable and improved. 4. Diet: regular diet 5. Activities: resume normal activities 6. Follow-Up: 1. PCP 2. 7. Medications at the Time of Discharge: Home Medications 3 Medication Instructions Recorded Confirmed Type Levothyroxine Sodium 100 mcg ORAL QD tab 10/27/10 05/15/17 History Amphet Asp/Amphet/D-Amphet 25 mg ORAL QD cap 03/22/11 05/15/17 History [Adderall Xr 25 mg Capsule] Bromocriptine Mesylate [Parlodel] 15 mg ORAL HS cap 03/22/11 05/15/17 History Acetaminophen [Tylenol] 325 mg PO PRN 05/15/17 05/15/17 History Amoxicillin 1,000 mg PO Q8H #15 cap 05/19/17 Rx Ascorbic Acid [Vitamin C] 1,000 mg PO DAILY tab 05/19/17 Rx 8. Time, care, counseling and coordination of care for this discharge is greater than 30 minutes. Exam - Vitals Vital Signs: Vital Signs Temperature 98.6 F Temperature Source Temporal Artery Scan Pulse Rate [Telemetry] 86 Pulse Rate [Apical] 86 Pulse Rate [Pulse Oximeter] 68 Pulse Rate 44 Respiratory Rate 16 Blood Pressure [Right Arm] 116/82 Blood Pressure [Left Arm] 116/77 Blood Pressure 85/55 Pulse Ox 97 Oxygen Flow Rate 22 Oxygen Delivery Method Room Air Height 5 ft 3 in Weight 140 lb Patient Problems - Patient Problem List (1) Pneumonia Current Visit: Yes Status: Acute Code(s): J18.9 - Pneumonia, unspecified organism Qualifiers: Pneumonia type: due to unspecified organism Laterality: right Lung location: lower lobe of lung Qualified Code(s): J18.1 - Lobar pneumonia, unspecified organism Category: Medical (2) Sepsis Current Visit: Yes Status: Acute Code(s): A41.9 - Sepsis, unspecified organism Qualifiers: Sepsis type: Pneumococcus Qualified Code(s): A40.3 - Sepsis due to Streptococcus pneumoniae Category: Medical (3) Hypotension Current Visit: Yes Status: Resolved Code(s): I95.9 - Hypotension, unspecified Qualifiers: Hypotension type: other hypotension type Qualified Code(s): I95.89 - Other hypotension Category: Medical (4) Hypothyroidism Current Visit: Yes Status: Acute Code(s): E03.9 - Hypothyroidism, unspecified Qualifiers: Hypothyroidism type: due to Cirilo's thyroiditis Qualified Code(s): E03.8 - Other specified hypothyroidism; E06.3 - Autoimmune thyroiditis Category: Medical (5) Parapneumonic effusion Current Visit: Yes Status: Acute Code(s): J18.9 - Pneumonia, unspecified organism; J91.8 - Pleural effusion in other conditions classified elsewhere Category: Medical
[2017-05-19 10:29] VITALS: RESP 14; O2SAT 98
[2017-05-20 10:30] LABS: HEP B CORE IGM ANTIBODY Negative (Negative); HEPATITIS B SURFACE AG Negative (Negative)
[2017-05-21 17:01] LABS: HEPATITIS A IGM Negative (Negative)
== END 2017-05-19 10:55 | disposition home or self-care (01) | DRG 193 ==
LOC: ER 18:12 → MED/SURG 22:28 → ICU 23:49 → MED/SURG 05-17 10:35
PROVIDERS: ADMIT Family Medicine; ATTEND Family Medicine